=== PATIENT | male | born 1975 | race Caucasian/White ===

== ENCOUNTER 2018-06-14 08:21 | Emergency (ER) | payer MEDICAID, OTHER ==
[~2018-06-14] VITALS: Ht 188 cm; Wt 173.0 kg
[2018-06-14] MEDS ORDERED: ALBUTEROL/IPRATROPIUM 2.5MG/0.5MG, 3 ML NPPB ONE (09:00)
[2018-06-14] MEDS ORDERED: ALBUTEROL/IPRATROPIUM 2.5MG/0.5MG, 3 ML ONE (09:22)
[2018-06-14 09:48] VITALS: BP 110/64
--- NOTE | 2018-06-14 09:49 | NUR ---
Patient/Caregiver given discharge instructions and they have confirmed that they understand the instructions. Patient ambulatory with steady gait. PT LEFT WITH ALL PERSONAL BELONGINGS.
== END 2018-06-14 09:55 | disposition home or self-care (01) ==
LOC: ED 09:39
DX: J44.9 Chronic obstructive pulmonary disease, unspecified (principal); J20.9 Acute bronchitis, unspecified; B97.89 Other viral agents as the cause of diseases classified elsewhere; Z87.891 Personal history of nicotine dependence
CPT/HCPCS: 71046; 93005; 94640; 99283; J7512; J7620